=== PATIENT | male | born 1970 | race Hispanic/Latino ===

== ENCOUNTER 2022-11-24 18:00 | Outpatient (CLI) | payer BC | END 2022-11-24 18:01 | disposition home or self-care (01) | LOC: SLEEPLAB 18:00 | PROVIDERS: ATTEND Family Medicine | DX: R06.83 Snoring (principal); G47.33 Obstructive sleep apnea (adult) (pediatric) | CPT/HCPCS: 95800 ==

== ENCOUNTER 2022-12-30 14:27 | Outpatient (CLI) | payer BC | END 2022-12-30 14:28 | disposition home or self-care (01) | LOC: DTY/OP 14:27 | PROVIDERS: ATTEND Surgery | DX: E66.01 Morbid (severe) obesity due to excess calories (principal) | CPT/HCPCS: 97802 ==

== ENCOUNTER 2023-02-11 18:00 | Outpatient (CLI) | payer BC | END 2023-02-11 18:01 | disposition home or self-care (01) | LOC: SLEEPLAB 18:00 | PROVIDERS: ATTEND Family Medicine | DX: G47.33 Obstructive sleep apnea (adult) (pediatric) (principal) | CPT/HCPCS: 95811 ==